=== PATIENT | male | born 1960 | race Caucasian/White ===

== ENCOUNTER 2018-01-05 00:54 | Inpatient (IN) | payer MEDICAID ==
[~2018-01-05] VITALS: Ht 165.1 cm; Wt 59.4 kg
[~2018-01-05 00:54] MED LIST: ACCUNEB SO1.25 MG/1 INH; ADDERALL 10 MG10 MG PO; LEVAQUIN 750 M750 MG PO; NORCO 10-325 T1 EACH PO; NORCO 5-325 TA1 EACH PO; PREDNISONE 10 M10 MG PO; PROTONIX40 M1 PO; VALIUM5 MG PO; XANAX 0.5 MG0.5 MG PO
[2018-01-05 00:59] VITALS: BP 119/74
[2018-01-05] MEDS ORDERED: VENTOLIN HFA 1818 GM INH (01:05)
[2018-01-05] MEDS ORDERED: WELLBUTRIN 75 M75 M1 PO (01:07)
[2018-01-05] MEDS ORDERED: GABAPENTIN 100100 MG PO (01:12)
[2018-01-05 01:25] LABS: ABSOLUTE BASOPHILS 0.2 thou/uL (0.0-0.2); ABSOLUTE EOSINOPHILS 0.3 thou/uL (0.0-0.7); ABSOLUTE LYMPHOCYTES 2.5 thou/uL (0.8-5.3); ABSOLUTE MONOCYTES 0.8 thou/uL (0.0-1.2); ABSOLUTE NEUTROPHILS 8.6 thou/uL (1.6-8.1); BASOPHILS 1.3 %; EOSINOPHILS 2.5 %; HEMATOCRIT 31.4 % (42.0-52.0); HEMOGLOBIN 9.8 gm/dL (14.0-18.0); LYMPHOCYTES 20.6 %; MCH 22.5 pg (26.0-34.0); MCHC 31.1 g/dL (28.0-37.0); MCV 72.3 fL (80.0-100.0); MONOCYTES 6.1 %; MPV 7.2 fl. (7.2-11.1); NUCLEATED RBCS 0 /100WBC; PLATELET COUNT* 359 thou/uL (150-400); POLYS 69.5 %; RBC 4.34 mil/uL (4.50-6.00); RDW-CV 17.8 % (10.5-14.5); WBC 12.4 thou/uL (4.0-11.0)
[2018-01-05 01:33] LABS: CALCIUM 8.7 mg/dL (8.5-10.1); CREATININE 1.1 mg/dL (0.6-1.3); POTASSIUM 3.9 mmol/L (3.5-5.1)
[2018-01-05 01:35] LABS: PROTIME 10.2 Seconds (9.20-11.50)
[2018-01-05 01:38] LABS: ALBUMIN 3.4 g/dL (3.4-5.0); TOTAL BILIRUBIN 0.1 mg/dL (<0.1-1.0); TOTAL PROTEIN 7.7 g/dL (6.4-8.2)
[2018-01-05 02:47] LABS: ANISOCYTOSIS 1+; HYPOCHROMASIA 2+; MICROCYTES 1+; OVALOCYTES Occasional
[2018-01-05 02:48] LABS: PLATELET ESTIMATE ADEQUATE
[2018-01-05 08:02] VITALS: BP 113/67
[2018-01-05 08:08] LABS: ABSOLUTE BASOPHILS 0.1 thou/uL (0.0-0.2); ABSOLUTE EOSINOPHILS 0.2 thou/uL (0.0-0.7); ABSOLUTE LYMPHOCYTES 1.8 thou/uL (0.8-5.3); ABSOLUTE MONOCYTES 1.4 thou/uL (0.0-1.2); ABSOLUTE NEUTROPHILS 14.3 thou/uL (1.6-8.1); BASOPHILS 0.6 %; EOSINOPHILS 0.9 %; HEMATOCRIT 30.9 % (42.0-52.0); HEMOGLOBIN 9.6 gm/dL (14.0-18.0); LYMPHOCYTES 10.1 %; MCH 22.5 pg (26.0-34.0); MCHC 30.9 g/dL (28.0-37.0); MCV 72.7 fL (80.0-100.0); MONOCYTES 7.9 %; MPV 7.6 fl. (7.2-11.1); NUCLEATED RBCS 0 /100WBC; PLATELET COUNT* 350 thou/uL (150-400); POLYS 80.5 %; RBC 4.25 mil/uL (4.50-6.00); RDW-CV 17.6 % (10.5-14.5); WBC 17.7 thou/uL (4.0-11.0)
[2018-01-05 08:19] LABS: CALCIUM 8.8 mg/dL (8.5-10.1); CREATININE 0.8 mg/dL (0.6-1.3); POTASSIUM 4.4 mmol/L (3.5-5.1)
[2018-01-05 08:59] VITALS: BP 136/73
[2018-01-05 12:02] VITALS: BP 142/75
[2018-01-05 15:29] VITALS: BP 151/76
[2018-01-05 20:00] VITALS: BP 149/77
[2018-01-06] VITALS: BP 132/72
[2018-01-06 04:29] VITALS: BP 121/66
[2018-01-06 04:56] LABS: ABSOLUTE BASOPHILS 0.1 thou/uL (0.0-0.2); ABSOLUTE EOSINOPHILS 0.3 thou/uL (0.0-0.7); ABSOLUTE LYMPHOCYTES 2.3 thou/uL (0.8-5.3); ABSOLUTE MONOCYTES 1.2 thou/uL (0.0-1.2); ABSOLUTE NEUTROPHILS 10.5 thou/uL (1.6-8.1); EOSINOPHILS 1.8 %; HEMATOCRIT 32.6 % (42.0-52.0); HEMOGLOBIN 10.1 gm/dL (14.0-18.0); LYMPHOCYTES 16.1 %; MCH 22.8 pg (26.0-34.0); MCHC 31.1 g/dL (28.0-37.0); MCV 73.2 fL (80.0-100.0); MONOCYTES 8.4 %; MPV 8.1 fl. (7.2-11.1); NUCLEATED RBCS 0 /100WBC; PLATELET COUNT* 336 thou/uL (150-400); POLYS 72.7 %; RBC 4.45 mil/uL (4.50-6.00); RDW-CV 17.8 % (10.5-14.5); WBC 14.4 thou/uL (4.0-11.0)
[2018-01-06 05:10] LABS: CALCIUM 8.9 mg/dL (8.5-10.1); CREATININE 0.8 mg/dL (0.6-1.3); POTASSIUM 4.6 mmol/L (3.5-5.1)
[2018-01-06 06:14] LABS: PLATELET ESTIMATE ADEQUATE; POLYCHROMASIA 2+
[2018-01-06 06:15] LABS: ANISOCYTOSIS 2+; MICROCYTES 1+; OVALOCYTES 2+; TARGET CELLS 1+
[2018-01-06 08:00] VITALS: BP 139/78
[2018-01-06] MEDS ORDERED: AMITRIPTYLINE H50 M2 PO (10:40)
[2018-01-06 12:06] VITALS: BP 139/75
[2018-01-06 15:55] VITALS: BP 113/75
[2018-01-06 20:00] VITALS: BP 133/80
[2018-01-07 00:10] VITALS: BP 124/70
[2018-01-07 04:00] VITALS: BP 139/78
[2018-01-07 05:25] LABS: CALCIUM 8.5 mg/dL (8.5-10.1); CREATININE 0.9 mg/dL (0.6-1.3); MAGNESIUM 1.6 mg/dL (1.8-2.4); PHOSPHORUS* 3.4 mg/dL (2.5-4.9); POTASSIUM 4.2 mmol/L (3.5-5.1)
[2018-01-07 08:00] VITALS: BP 138/84
[2018-01-07 11:21] VITALS: BP 163/92
[2018-01-07 15:46] VITALS: BP 138/79
[2018-01-07 19:47] VITALS: BP 147/85
[2018-01-08] VITALS (8 sets, daily range): BP systolic 131–147; BP diastolic 74–84
[2018-01-08 05:35] LABS: HEMATOCRIT 31.1 % (42.0-52.0); HEMOGLOBIN 9.7 gm/dL (14.0-18.0); MCH 22.9 pg (26.0-34.0); MCHC 31.2 g/dL (28.0-37.0); MCV 73.2 fL (80.0-100.0); RBC 4.24 mil/uL (4.50-6.00); RDW-CV 18.1 % (10.5-14.5); WBC 10.7 thou/uL (4.0-11.0)
[2018-01-08 05:47] LABS: APTT 26.7 Seconds (25.0-31.3); PROTIME 10.2 Seconds (9.20-11.50)
[2018-01-08 05:53] LABS: CALCIUM 9.2 mg/dL (8.5-10.1); CREATININE 0.8 mg/dL (0.6-1.3); POTASSIUM 4.7 mmol/L (3.5-5.1)
--- NOTE | 2018-01-08 17:28 | EKG ---
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 : 1960 Requested By: Narendra Cruz Order Number: [id number] Mahsa MD: Bartolo Ayala Measurements Intervals [place] Rate: 76 P: 65 NM: 175 QRS: -41 QRSD: 93 T: 71 QT: 399 QTc: 449 Interpretive Statements Sinus rhythm Left axis deviation Compared to ECG 05/22/2017 11:09:33 Left-axis deviation now present Left anterior fascicular block no longer present T-wave abnormality no longer present Possible ischemia no longer present Prolonged QT interval no longer present Electronically Signed On 01-08-2018 17:28:15 CDT by Bartolo Ayala [email or web address] <ELECTRONICALLY SIGNED> By: Bartolo Ayala MD, FACC 01/08/18 1728 0611 0611 Bartolo Ayala MD, FAC /EPI
[2018-01-09 01:25] VITALS: BP 117/66
[2018-01-09 04:25] VITALS: BP 150/72
[2018-01-09] MEDS ORDERED: COLACE100 MG PO ×2 (07:46→08:41)
--- NOTE | 2018-01-09 08:10 | OP ---
[address] [address] OPERATIVE REPORT Name: ZION BANEGAS Room: [address] IN ..#: [id number] Admission: 01/05/18 Attend Phys: Augusto Downs Discharge: Date of : 58 Report #: [id number] THIS REPORT FOR: //name// CC: JUAN MANUEL physician/PCP Narendra Cruz DICTATED BY: Aditya Randhawa DO DATE OF SERVICE: 01/08/2018 PREOPERATIVE DIAGNOSIS: Comminuted right distal radius extra-articular fracture. POSTOPERATIVE DIAGNOSIS: Comminuted right distal radius extra-articular fracture. PROCEDURE PERFORMED: Open reduction and internal fixation, right distal radius. SURGEON: Get Mcmillan DO SCRIPT MANAGER: Aditya Randhawa DO ANESTHESIA: General and local. ESTIMATED BLOOD LOSS: 5 mL SPECIMENS: None. COMPLICATIONS: None. ANTIBIOTICS: Ancef 2 grams IV preop. ORTHOPEDIC IMPLANTS: Pedrito distal radius plate with combination of cortical and locking screws. INDICATIONS FOR PROCEDURE: The patient is a pleasant 57-year-old male who had a fall approximately 2 to 3 days ago. He was brought to the emergency department after falling down the stairs while intoxicated where he was found to have superior inferior pubic ramus fracture on the right, as well as a right distal radius fracture, which was splinted. He was admitted for pain control and medical management. Once he was optimized and cleared for surgery, it is recommended he would be a candidate for open reduction and internal fixation of his right distal radius. His superior pubic rami can be treated nonoperatively and he can weightbear as tolerated to that. All risks, benefits, complications, indications, and alternatives reviewed. The patient wished to proceed. [place] [id number] OPERATIVE REPORT Name: ZION BANEGASNETH Room: [address] IN M.R.#: [id number] Admission: 01/05/18 Attend Phys: Augusto Downs Discharge: Date of : 58 Report #: [id number] DESCRIPTION OF PROCEDURE: The patient was brought to the operative suite, placed supine on a well-padded table with the right upper extremity on a hand table. A tourniquet was applied to the proximal arm and insufflated to 250 mmHg for total of 45 minutes of the case. Once tourniquet on the proximal arm, The right upper extremity was sterilely prepped and draped in standard fashion. Timeout was taken to ensure correct patient, procedure, operative site. Everybody in the room was in agreement. At that time, 15-blade scalpel was used to make incision through skin and subcutaneous tissue down to the FCR tendon. FCR tendon sheath was incised and retracted ulnarly. The floor of the FCR tendon sheath was carefully incised. Once we were through this fascial layer, the fascial layer was with care taken to protect the radial artery throughout. FPL was retracted and we were down in pronator quadratus. A 15-blade scalpel was used to elevate pronator quadratus from its distal and radial attachments. A gomez elevator was then used to free up any soft tissue involved over the fracture site. Once the fracture site was encountered, a [place]oa elevator and gomez elevator were used to free up the fracture site and mobilize it. Brachioradialis was partially released off the radial styloid to help with reduction. Once we got adequate provisional reduction on fluoroscopy, we then placed a Pedrito 3-hole plate with K wires. We positioned this at the appropriate position on fluoroscopy. We then placed our proximal and distal locking screws into the distal aspect of the plate with the wrist in a flexed position. We then used the plate to further reduce our fracture as we placed cortical screws proximally into the plate. We then drilled over and placed our final locking screw into the radial styloid. Once this portion of the case was finished, final images were taken and saved to the PACS system. The wound was thoroughly irrigated with normal saline. Tourniquet was sent down to 45 minutes. There was no bleeding observed, radial artery was visible and it fixated the patient's pulse. We then closed the subcutaneous tissue with 2-0 Vicryl followed by a running 3-0 Stratafix and Dermabond glue. A 4 x 4, soft roll, , volar resting splint, and Benja bandage were applied. The patient was awakened from anesthesia and brought to PACU in stable condition. <ELECTRONICALLY SIGNED> By: Get Mcmillan DO 01/09/18 0810 0858 0947Get Mcmillan DO /eusebio
[2018-01-09 08:25] VITALS: BP 144/68
[2018-01-09] MEDS ORDERED: OXYCODONE HCL 55 MG PO (08:45)
[2018-01-09 08:48] VITALS: BP 144/68
[2018-01-09] MEDS ORDERED: ASPIRIN325 PO (09:25)
[2018-01-09 15:56] VITALS: BP 121/71
== END 2018-01-09 18:03 | disposition home or self-care (01) | DRG 853 ==
LOC: M.ERS 00:54 → M.TBA-ER 06:34 → M.2W 08:17 → M.ORTHSURG 01-08 21:10
PROVIDERS: Emergency Medicine; Orthopaedic Surgery; ADMIT Internal Medicine
DX: A41.9 Sepsis, unspecified organism (principal); J18.9 Pneumonia, unspecified organism; J96.01 Acute respiratory failure with hypoxia; S52.571A Other intraarticular fracture of lower end of right radius, initial encounter for closed fracture; S32.511A Fracture of superior rim of right pubis, initial encounter for closed fracture; S52.551A Other extraarticular fracture of lower end of right radius, initial encounter for closed fracture; S01.01XA Laceration without foreign body of scalp, initial encounter; B19.20 Unspecified viral hepatitis C without hepatic coma; J43.9 Emphysema, unspecified; F32.9 Major depressive disorder, single episode, unspecified; F41.9 Anxiety disorder, unspecified; K80.20 Calculus of gallbladder without cholecystitis without obstruction; F10.220 Alcohol dependence with intoxication, uncomplicated; G25.81 Restless legs syndrome; F17.210 Nicotine dependence, cigarettes, uncomplicated; W10.8XXA Fall (on) (from) other stairs and steps, initial encounter; Z79.899 Other long term (current) drug therapy; Y93.89 Activity, other specified; Y92.89 Other specified places as the place of occurrence of the external cause; Y99.8 Other external cause status; Z88.8 Allergy status to other drugs, medicaments and biological substances

== ENCOUNTER 2018-01-28 17:08 | Inpatient (IN) | payer MEDICAID ==
[~2018-01-28] VITALS: Ht 170.2 cm; Wt 64.0 kg
[~2018-01-28 17:08] MED LIST changes: +AMITRIPTYLINE H50 M2 PO; +ASPIRIN325 PO; +COLACE100 MG PO; +GABAPENTIN 100100 MG PO; +OXYCODONE HCL 55 MG PO; +VENTOLIN HFA 1818 GM INH; +WELLBUTRIN 75 M75 M1 PO
[2018-01-28 17:09] VITALS: BP 130/70
[2018-01-28 17:41] LABS: HEMATOCRIT 32.7 % (42.0-52.0); HEMOGLOBIN 10.1 gm/dL (14.0-18.0); MCH 21.8 pg (26.0-34.0); MCHC 30.7 g/dL (28.0-37.0); MPV 7.6 fl. (7.2-11.1); NUCLEATED RBCS 0 /100WBC; PLATELET COUNT* 457 thou/uL (150-400); RBC 4.61 mil/uL (4.50-6.00); RDW-CV 19.1 % (10.5-14.5); WBC 39.3 thou/uL (4.0-11.0)
[2018-01-28 17:45] LABS: CALCIUM 8.8 mg/dL (8.5-10.1); CREATININE 1.1 mg/dL (0.6-1.3)
[2018-01-28 17:49] LABS: ALBUMIN 3.3 g/dL (3.4-5.0); TOTAL BILIRUBIN 0.4 mg/dL (<0.1-1.0); TOTAL PROTEIN 7.8 g/dL (6.4-8.2)
[2018-01-28 18:19] LABS: APTT 28.9 Seconds (25.0-31.3); INR 1.2; PROTIME 11.7 Seconds (9.20-11.50)
[2018-01-28 18:30] LABS: ABSOLUTE LYMPHOCYTES 3.1 thou/uL (0.8-5.3); ABSOLUTE NEUTROPHILS 34.2 thou/uL (1.6-8.1)
[2018-01-28 18:33] LABS: ANISOCYTOSIS 2+; OVALOCYTES Occasional; PLATELET ESTIMATE INCREASED
[2018-01-28 18:34] LABS: HYPOCHROMASIA 1+; MICROCYTES 1+
[2018-01-28 19:55] VITALS: BP 104/57
[2018-01-28 22:45] VITALS: BP 107/60
[2018-01-29 02:18] LABS: HEMATOCRIT 28.4 % (42.0-52.0); HEMOGLOBIN 8.8 gm/dL (14.0-18.0); MCH 22.4 pg (26.0-34.0); MCV 72.1 fL (80.0-100.0); RBC 3.94 mil/uL (4.50-6.00); RDW-CV 18.8 % (10.5-14.5); WBC 34.9 thou/uL (4.0-11.0)
[2018-01-29 02:34] LABS: CALCIUM 8.2 mg/dL (8.5-10.1); CREATININE 1.1 mg/dL (0.6-1.3); POTASSIUM 4.6 mmol/L (3.5-5.1)
[2018-01-29 04:00] VITALS: BP 131/65
--- NOTE | 2018-01-29 04:33 | NUR ---
ASSUMED CARE AT 2245, ADMISSION CHARTED. PATIENT FROM PACU, REPORT RECEIVED FROM DUTCH OSBORN. PATIENT ALERT/ORIENTED X4, RESTING IN BED. PLACED ON TELE, ST. WEARING OXYGEN 4L/NC, NO SOB NOTED, SATS 97% PER CONTINUOUS PULSE OX. SL INTACT TO RIGHT AND LEFT FOREARM, FLUSHES WELL, IVF STARTED PER MAR. REMAINS ON BEDREST. URINAL AT SIDE. PATIENT TURNED AND REPOSITIONED IN BED WITH PILLOWS Q2H. SCD'S INTACT. TOLERATING ICE CHIPS WELL WITH NO NAUSEA/VOMITING NOTED. STATES HAVING ABDOMINAL PAIN, RATES 5/10, MEDS PER MAR WITH RELIEF NOTED. THREE SMALL LAP INCISIONS NOTED TO ABDOMEN WITH DERMABOND INTACT. SEPSIS SCREENED POSITIVE. DR. TUCKER NOTIFIED, ORDERS RECEIVED AND NOTED. ORIENTED TO CALL LIGHT, STAFF, AND BED CONTROLS. BED ALARM ON. CALL LIGHT WITHIN REACH, ENCOURAGED TO CALL FOR NEEDS.
[2018-01-29 06:18] LABS: HEMATOCRIT 28.7 % (42.0-52.0); HEMOGLOBIN 8.7 gm/dL (14.0-18.0); MCH 21.9 pg (26.0-34.0); MCHC 30.5 g/dL (28.0-37.0); MCV 71.8 fL (80.0-100.0); MPV 7.2 fl. (7.2-11.1); RDW-CV 19.2 % (10.5-14.5); WBC 33.3 thou/uL (4.0-11.0)
[2018-01-29 06:20] LABS: URINE BILIRUBIN NEGATIVE (Negative); URINE BLOOD TRACE (Negative); URINE CLARITY CLEAR; URINE COLOR YELLOW; URINE GLUCOSE-RANDOM NEGATIVE (Negative); URINE KETONES NEGATIVE (Negative); URINE LEUKOCYTES-REFLEX NEGATIVE (Negative); URINE NITRITE-REFLEX NEGATIVE (Negative); URINE PROTEIN TRACE (Negative); URINE SPECIFIC GRAVITY 1.025 (1.005-1.030); URINE UROBILINOGEN 0.2 E.U./dl (0.2-1.0)
[2018-01-29 06:29] LABS: POTASSIUM 4.2 mmol/L (3.5-5.1)
--- NOTE | 2018-01-29 07:42 | NUR ---
PATIENT RESTING IN BED. VOIDED PER URINAL, UA SENT TO LAB. REPORT GIVEN TO ONCOMING NURSE. WILL MONITOR.
[2018-01-29 08:00] VITALS: BP 104/62
[2018-01-29 11:33] VITALS: BP 117/71
--- NOTE | 2018-01-29 11:55 | NUR ---
ASSUMED CARE OF PATIENT THIS AM AT 0730. PATIENT IS ALERT AND ORIENTED X 4. HE C/O POST SURGICAL PAIN. PATIENT KEPT NPO AT THIS TIME PER ORDER. TELE SHOWS ST. PATIENT HAS BEEN ON BED REST. IV FLUIDS INFUSING. PATIENT MEDICATED FOR PAIN Q 2 HR. WILL CONTINUE TO MONITOR PATIENT COMFORT.
--- NOTE | 2018-01-29 13:41 | NUR ---
Pt known to this CM from previous hospital stay. Pt is A&O. Resides at home with his dtr. Normally independent, works outside of the home at a [employer]. Pt dc last time with a platform walker, Pt states that he no longer uses it. PT/OT ordered, to assist with exercise plan for home at dc. No hx of HH or SNF. Pt's goal is to dc home. Following
--- NOTE | 2018-01-29 14:51 | EKG ---
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 : 1960 Requested By: Mary Mejia Order Number: [id number] MD: Bartolo Ayala Measurements Intervals [place] Rate: 121 P: 71 [place]: 166 QRS: -51 QRSD: 88 T: 75 QT: 317 QTc: 450 Interpretive Statements Sinus tachycardia Probable left atrial enlargement LAD, consider left anterior fascicular block Incomplete right bundle-branch block Compared to ECG 01/08/2018 06:11:31 ST (T wave) deviation now present Sinus rhythm no longer present Incomplete right bundle-branch block present Electronically Signed On 01-29-2018 14:50:58 CDT by Bartolo Ayala [email or web address] <ELECTRONICALLY SIGNED> By: Bartolo Ayala MD, FACC 01/29/18 1450 1716 1716 Bartolo Ayala MD, FAC /EPI
--- NOTE | 2018-01-29 14:52 | EKG ---
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 : 1960 Requested By: Ralf Burdick Order Number: [id number] Reading MD: Bartolo Ayala Measurements Intervals [place] Rate: 117 P: 65 [place]: 169 QRS: -26 QRSD: 100 T: 60 QT: 313 QTc: 437 Interpretive Statements Sinus tachycardia Borderline left axis deviation Minimal ST elevation, inferior leads Compared to ECG 01/08/2018 06:11:31 ST (T wave) deviation now present Sinus rhythm no longer present Electronically Signed On 01-29-2018 14:51:54 CDT by Bartolo Ayala [email or web address] <ELECTRONICALLY SIGNED> By: Bartolo Ayala MD, FACC 01/29/18 1451 2347 2347 Bartolo Ayala MD, [facility] /EPI
[2018-01-29 15:34] VITALS: BP 116/65
[2018-01-29 17:01] VITALS: BP 100/60
[2018-01-29 20:00] VITALS: BP 119/65
[2018-01-30] VITALS: BP 123/64
[2018-01-30 04:00] VITALS: BP 117/66
[2018-01-30 04:32] LABS: ABSOLUTE EOSINOPHILS 0.1 thou/uL (0.0-0.7); ABSOLUTE LYMPHOCYTES 1.8 thou/uL (0.8-5.3); ABSOLUTE NEUTROPHILS 16.6 thou/uL (1.6-8.1); BASOPHILS 0.2 %; EOSINOPHILS 0.4 %; HEMOGLOBIN 8.6 gm/dL (14.0-18.0); LYMPHOCYTES 9.4 %; MCH 22.4 pg (26.0-34.0); MCHC 30.8 g/dL (28.0-37.0); MCV 72.7 fL (80.0-100.0); MONOCYTES 5.2 %; MPV 7.8 fl. (7.2-11.1); NUCLEATED RBCS 0 /100WBC; PLATELET COUNT* 281 thou/uL (150-400); POLYS 84.8 %; RBC 3.86 mil/uL (4.50-6.00); RDW-CV 19.3 % (10.5-14.5); WBC 19.6 thou/uL (4.0-11.0)
[2018-01-30 04:47] LABS: ALBUMIN 2.3 g/dL (3.4-5.0); CALCIUM 8.4 mg/dL (8.5-10.1); CREATININE 0.9 mg/dL (0.6-1.3); POTASSIUM 3.9 mmol/L (3.5-5.1); TOTAL BILIRUBIN 0.3 mg/dL (<0.1-1.0); TOTAL PROTEIN 6.2 g/dL (6.4-8.2)
--- NOTE | 2018-01-30 05:14 | NUR ---
PATIENT NOT PROGRESSING TOWARDS GOALS: PATIENT CONTINUES TO RECEIVE FREQUENT DOSES OF FENTANYL FOR PAIN IN ABDOMEN RATE 8-9/10. BEAM DEPARTMENT SUPERVISOR READS ST THROUGHOUT SHIFT, HR FROM 100-120'S. PATIENT BECAME DISORIENTED AND ATTEMPTING TO CLIMB OUT OF BED AT AROUND 0300. BED ALARM SOUNDED AND PATIENT O2 SATS WERE FOUND TO BE 79-80%. PATIENT REORIENTED, ASSISTED BACK IN BED, AND PLACED ON 5L O2 NC TO MAINTAIN SATS >92%. O2 HAS SINCE BEEN WEANED TO 2L O2 NC WITH SATURATION 95%. PATIENT RESTING COMFORTABLY AT THIS TIME. CALL LIGHT WITHIN REACH. HOURLY ROUNDING OBSERVED.
[2018-01-30 08:00] VITALS: BP 128/77
--- NOTE | 2018-01-30 09:40 | OP ---
[address] [address] OPERATIVE REPORT Name: BANEGAS,ZION CASTRO Room: [address] IN .R.#: [id number] Admission: 01/28/18 Attend Phys: Ralf Burdick MD Discharge: Date of : 58 Report #: [id number] THIS REPORT FOR: //name// CC: [facility] physician/PCP Ralf Burdick DATE OF SERVICE: 01/28/2018 PREOPERATIVE DIAGNOSIS: Acute appendicitis. POSTOPERATIVE DIAGNOSIS: Perforated acute appendicitis. OPERATIVE PROCEDURE: Laparoscopic appendectomy. ANESTHESIA: General endotracheal with 0.5% Marcaine infiltrated in the wound site. OPERATIVE FINDINGS: Perforated gangrenous appendix with spillage and purulent drainage throughout the lower abdomen and upper abdomen. OPERATIVE PROCEDURE: The patient was placed under general endotracheal anesthesia and the abdomen was shaved, prepped and draped in a sterile fashion. Time-out was taken. Antibiotics administered. We began by infiltrating the infraumbilical crease with 0.5% Marcaine. A transverse incision was created with #15 blade and two Adson and cautery were used to dissect down to the anterior fascia. The fascia was lifted up and cleared with cautery and transected transversely with a #15 scalpel blade and then a hemostat was carefully used to bluntly dissect into the peritoneal cavity, without injury to underlying abdominal viscera. An 0 Vicryl was looped through this incision site and a size 12 Adriana trocar was placed into the peritoneal cavity and secured at the skin. Insufflation with carbon dioxide to 5 liters was completed and a 5-mm 30-degree scope was inserted. Inspection of the abdomen showed demonstration of peritonitis and yellowish purulent material. I then, under direct visualization, infiltrated the suprapubic area and the right lateral abdomen and placed two 5-mm trocars in those locations after a 5-mm incision placed at those locations. The patient was then placed in Trendelenburg and left lateral decubitus position. Manipulating the bowel with two Endo Babcocks, I was able to find the appendix. It was gangrenous. It was lifted up and I then used the LigaSure to dissect the mesoappendix until I could see the appendiceal-cecal junction. An Endo-DAMIÁN was brought into the field, placed across the base of the appendiceal-cecal junction and fired successfully amputating the appendix. The appendix then was lifted up and the stapler was removed and an Endopouch was fed into the abdominal cavity, opened and the appendix placed in that pouch and the pouch closed. I then retrieved the pouch with the appendix in it through the umbilical incision site re-establishing pneumoperitoneum. I irrigated the abdomen with approximately 1700 mL of saline solution [place] [address] OPERATIVE REPORT Name: ZION BANEGAS Room: [address] IN M.R.#: [id number] Admission: 01/28/18 Attend Phys: Ralf Burdick MD Discharge: Date of : 58 Report #: [id number] effluent until it was practically clear from the pelvis and both left and right upper abdomen, around the liver and around the diaphragm. Once that fluid was aspirated, pneumoperitoneum was released. Trocars were removed. The patient was placed back in the neutral position. The 0 Vicryl was tied at the umbilical stalk and infiltrated with 0.5% Marcaine and then all three incisions were closed with 4-0 PDS sutures and sealed with Dermabond. Estimated blood loss 2 mL. Sponge and instrument counts correct. The patient was extubated and returned to recovery in satisfactory condition. <ELECTRONICALLY SIGNED> By: Nely Arambula MD 01/30/18 0940 2139 2219Nely Arambula MD /nt
--- NOTE | 2018-01-30 11:47 | CON ---
[address] [address] CONSULTATION Name: BANEGAS,ZION CASTRO Room: [address] IN M.R.#: [id number] Admission: 01/28/18 Attend Phys: Ralf Burdick MD Discharge: Date of : 58 Report #: [id number] THIS REPORT FOR: //name// CC: [facility] physician/PCP Ralf Burdick DATE OF SERVICE: 01/29/2018 ATTENDING PHYSICIAN:Beto Scott M.D. REASON FOR EVALUATION: Acute perforated appendicitis. HISTORY OF PRESENT ILLNESS: Chart reviewed, patient examined. This is a 57-year-old gentleman with a known COPD with emphysematous component, also ethanolism who was admitted with a fairly abrupt onset of right lower quadrant pain. It is notable he had gallstones, was concerned about cholecystitis, was evaluated including imaging in the Emergency Room, was found to have confirmation of inflammatory process involving the appendix with periappendiceal inflammation to suggest perforation and underwent laparoscopic appendectomy and this was confirmed. He has been on broad spectrum therapy with piperacillin and tazobactam. He does have moderate degree of pain at this point. Denies significant dyspnea. He is somewhat lethargic, although not encephalopathic. ALLERGIES: STELAZINE. CURRENT MEDICATIONS: Include Zosyn, oxycodone, enoxaparin, ipratropium and albuterol inhaler, metronidazole, fentanyl, p.r.n. analgesics and antiemetics. PAST MEDICAL HISTORY: As noted above, COPD, restless legs syndrome, history of hepatitis C. SOCIAL HISTORY: Former excess ethanol, smokes 3 cigarettes a day. FAMILY HISTORY: Noncontributory. REVIEW OF SYSTEMS: As above. PHYSICAL EXAMINATION: GENERAL: He is in moderate distress at this point secondary to pain. He is taking shallow breaths. He is lying supine. He is somewhat lethargic, appears mildly undernourished and chronically ill appearing. VITAL SIGNS: Temperature 98.1, pulse 106, respirations 16, blood pressure 117/71. SKIN: Warm, dry, no rashes. HEENT: He has got nasal cannula oxygen in place. NECK: [place] [address] CONSULTATION Name: ZION BANEGAS Room: [address] IN [facility]#: [id number] Admission: 01/28/18 Attend Phys: Ralf Burdick MD Discharge: Date of : 58 Report #: [id number] LUNGS: Diminished breath sounds, a few scattered crackles. HEART: Regular. I do not appreciate any murmur. ABDOMEN: It is mildly firm. There is some tenderness particularly the stab site in particular right lower quadrant. GENITOURINARY AND RECTAL: Deferred. LABORATORY DATA: Electrolytes: Sodium 129, potassium 4.2, chloride 98, bicarbonate is 25, BUN and creatinine 17 and 1.0. Estimated GFR of 77, anion gap of 6. CBC: White count of 33.3, is down from 34.9. H and H 8.7 and 28.7, platelets of 347. Urinalysis: Unremarkable. Electrolytes: Lactic acid 1.8. Reviewed operative report chest x-ray, no acute process. CT of the pelvis preop showed dilated appendix with severe surrounding inflammation, focus of free intraperitoneal air within the hepatorenal fossa, probably distended gallbladder without surrounding inflammation and a previous history of right superior and inferior pubic rami fractures, mild sigmoid diverticulosis without evidence of diverticulitis, severe bronchiectasis in the lower lungs. Liver functions otherwise unremarkable with the exception of mildly elevated alkaline phosphatase 133, total protein 7.8, albumin 3.3. ASSESSMENT AND PLAN: Acute perforated appendix with peritonitis. We will continue empiric therapy presuming polymicrobial etiology. We will follow up on blood cultures results as well. Was encouraged to utilize the incentive spirometer and certainly suspect he has some degree of immune suppression given his history and would be at risk for nosocomial-related infectious complications as well. We will monitor expectantly. Increase activity as allowed and advance diet as tolerated. <ELECTRONICALLY SIGNED> By: Dilip Benz MD 01/30/18 1147 1213 1441Jobrenda Benz MD /nt
[2018-01-30 12:00] VITALS: BP 110/69
[2018-01-30 12:22] LABS: BE -2.2 mmol/L (-2 to +3); HCO3 22.4 mmol/L (22.0-26.0); PCO2 37.4 mmHg (35.0-45.0); pH 7.395 (7.340-7.450)
[2018-01-30 15:38] VITALS: BP 126/68
--- NOTE | 2018-01-30 17:08 | NUR ---
I ASSUMED CARE OF THE PATIENT AT 0700. HE IS ALERT AND ORIENTED X4 AND IS UP WITH ASSIST OF 1 WITH A GAIT BELT. HE HAS BEEN OUT OF THE BED TO THE CHAIR A FEW TIMES TODAY AND AMBULATES TO THE BATHROOM. HOURLY ROUNDING WAS COMPLETED AND PATIENT NEEDS ARE MET. BED IS IN THE LOW LOCKED POSITION AND ALARM IS ON WITH CALL LIGHT IN REACH. PAIN IS MANAGED WITH PRN MEDS. HE IS GOOD ABOUT USING THE IS/BREATHING TREATMENTS. NEW ORDERS WERE OBTAINED FOR CONTINUOUS PULSE OX. CHEST XRAY RESULTS WERE WNL. WILL CONTINUE TO MONITOR.
--- NOTE | 2018-01-30 17:24 | NUR ---
PHYSICIAN SAYS PATIENT MAY BE ADVANCED TO CLEAR LIQUID DIET WHEN PASSING GAS. HE MAY BE A SOLID/REGULAR DIET WHEN HE HAS A BM.
[2018-01-30 20:00] VITALS: BP 132/79
[2018-01-31] VITALS: BP 139/78
--- NOTE | 2018-01-31 03:22 | NUR ---
ASSUMED PT CARE. REPORT RECEIVED FROM NURSE . PT IS ALERT AWAKE ORINETED X4. SINUS TACHYCARDIA ON THE MONITOR. VITAL SIGNS ARE WITHIN NORMAL LIMIT. 1/2 NS INFUSING IN L IV LINE AT 80CC PER HOUR. IV ANTIBIOTICS GIVEN SCHEDULED. ASSESSEMENT PERFORMED. COMPLAIN OF PAIN LEVEL 6 IN HIS ABDOMEN. FENTANYL GIVEN ONCE. LAP SITE IN DRY CLEAN AND INTACT. NO DRESSING. ON FALL PRECAUTION . CALL LIGHT AT REACH. WILL CONTINUE TO MONITOR.
[2018-01-31 04:00] VITALS: BP 125/70
[2018-01-31 04:30] LABS: ABSOLUTE EOSINOPHILS 0.1 thou/uL (0.0-0.7); ABSOLUTE LYMPHOCYTES 0.9 thou/uL (0.8-5.3); ABSOLUTE MONOCYTES 0.7 thou/uL (0.0-1.2); ABSOLUTE NEUTROPHILS 13.2 thou/uL (1.6-8.1); BASOPHILS 0.2 %; EOSINOPHILS 0.5 %; HEMATOCRIT 27.4 % (42.0-52.0); HEMOGLOBIN 8.7 gm/dL (14.0-18.0); LYMPHOCYTES 5.8 %; MCH 22.5 pg (26.0-34.0); MCHC 31.7 g/dL (28.0-37.0); MCV 70.9 fL (80.0-100.0); MONOCYTES 4.7 %; MPV 7.8 fl. (7.2-11.1); NUCLEATED RBCS 0 /100WBC; PLATELET COUNT* 272 thou/uL (150-400); POLYS 88.8 %; RBC 3.87 mil/uL (4.50-6.00); RDW-CV 18.8 % (10.5-14.5); WBC 14.9 thou/uL (4.0-11.0)
[2018-01-31 04:43] LABS: ALBUMIN 2.3 g/dL (3.4-5.0); CALCIUM 8.3 mg/dL (8.5-10.1); CREATININE 0.7 mg/dL (0.6-1.3); POTASSIUM 3.6 mmol/L (3.5-5.1); TOTAL BILIRUBIN 0.4 mg/dL (<0.1-1.0); TOTAL PROTEIN 6.3 g/dL (6.4-8.2)
[2018-01-31 04:45] LABS: PREALBUMIN 8.2 mg/dL (18.0-35.7)
--- NOTE | 2018-01-31 06:49 | NUR ---
IV ANTIBIOTICS, PAINMED WERE GIVEN DURING NIGHT. PT LAP SITES ARE INTACT DRY AND CLEAN . NO DRAINAGE. HE HAD HIS FIRST BOWEL MOVEMNET SINCE SX THIS AM AT 0630.
--- NOTE | 2018-01-31 07:15 | NUR ---
CHANGE OF SHIFT BEDSIDE REPORT GIVEN PATIENT SEEN AT BEDSIDE IN BED RESTING ASSUMED PATIENT CARE
[2018-01-31 08:00] VITALS: BP 130/79
[2018-01-31 12:00] VITALS: BP 130/84
[2018-01-31 16:00] VITALS: BP 128/84
--- NOTE | 2018-01-31 18:09 | NUR ---
PATIENT REMAINS A AND O X 4 ST 100S-110S LUNGS CTA/DIM IN BASES ON RA SATS MID 90S APPETITE FAIR ADVANCED TO REGULAR DIET ABD FIRM, BS LAST BM THIS AM GOOD UO, PER URINAL UP WITH ASSIST SAT UP IN CHAIR SEVERAL TIMES AND WALKED IN HALLWAY, TOLERATED WELL IV L WR 20 GA ABD 3 LAP SITES C/D/I IVF D51/2NS+20KCL AT 80CC/HR 2ND IV R FA 22 GA SL C/O ABD PAIN TREATED WITH NORCO PO PRN WITH RELIEF CALL LIGHT IN REACH AND INSTRUCTION GIVEN AND FOLLOWED ABN LABS MONITORED NA 126, HGB 8.7, WBC 14.9, CRP 227
[2018-01-31 20:00] VITALS: BP 140/81
[2018-02-01] VITALS: BP 132/81
--- NOTE | 2018-02-01 00:14 | NUR ---
ASSUMED PT CARE REPORT RECEIVED FORM NURSE. PT IS ALERT AWAKE ORIENTED X4. SINUS RYTHM ON THE GALLERY OR MUSEUM TECHNICIAN. IV ANTIBIOTICS INFUSING. O2 SATURATION IS 97% ON RA. PT COMPLAINS OF PAIN IN ABD. PAIN PILL GIVEN. ON FALL PRECAUTION FOR PREVIOUS FALL.USES URINAL. IV FLUID INFUSING. IV LINES ARE PATENT. WILL CONTINUE TO MONITOR
[2018-02-01 04:00] VITALS: BP 126/74
[2018-02-01 04:25] LABS: HEMOGLOBIN 9.2 gm/dL (14.0-18.0); MCH 22.4 pg (26.0-34.0); MCHC 31.7 g/dL (28.0-37.0); MCV 70.7 fL (80.0-100.0); MPV 7.6 fl. (7.2-11.1); RBC 4.11 mil/uL (4.50-6.00); RDW-CV 19.2 % (10.5-14.5); WBC 11.4 thou/uL (4.0-11.0)
[2018-02-01 04:31] LABS: CALCIUM 8.5 mg/dL (8.5-10.1); CREATININE 0.7 mg/dL (0.6-1.3); POTASSIUM 3.7 mmol/L (3.5-5.1)
[2018-02-01 08:00] VITALS: BP 133/77
[2018-02-01 11:47] VITALS: BP 153/87
[2018-02-01 15:18] VITALS: BP 152/91
--- NOTE | 2018-02-01 18:06 | NUR ---
PT RECEIVED PAIN MEDS X2 TODAY 1X EMESIS OF FOOD AND COFFEE THIS AM BM THIS AM THAT WAS LOOSE BUT NOT SINCE PT DID GET HEARTBURN THIS EVENING SURGEON AWARE AND 'IT'S PART OF THE HEALING PROCESS' FAMILY IS AWARE WELL PT IS UP SBA STEADY CALL LIGHT IN REACH
[2018-02-01 19:50] VITALS: BP 117/69
[2018-02-02] VITALS: BP 121/65
[2018-02-02 04:00] VITALS: BP 138/84
[2018-02-02 04:41] LABS: HEMATOCRIT 28.3 % (42.0-52.0); HEMOGLOBIN 9.1 gm/dL (14.0-18.0); MCH 22.9 pg (26.0-34.0); MCHC 32.3 g/dL (28.0-37.0); MCV 70.8 fL (80.0-100.0); MPV 7.4 fl. (7.2-11.1); WBC 10.9 thou/uL (4.0-11.0)
--- NOTE | 2018-02-02 04:53 | NUR ---
END SHIFT: PT RESTED WELL. C/O PAIN IN ABD X1 RELIEVED WITH PAIN MEDICATION. SR/ST ON MONITOR. TOLERATING IV ANTIBIOTICS WELL. NO C/O NAUSEA OVER SHIFT. 3 LAP SITES ON ABD CLOSED WITH DERMABOND AND INTACT. NO REDNESS OR OOZING NOTED. PLANS FOR DC THIS WEEKEND. SAFETY PRECAUTIONS IN PLACE. VSS. CALL LIGHT IN REACH. WILL CONT TO MONITOR.
[2018-02-02 05:27] LABS: CALCIUM 8.1 mg/dL (8.5-10.1); CREATININE 0.7 mg/dL (0.6-1.3); MAGNESIUM 1.1 mg/dL (1.8-2.4); POTASSIUM 3.8 mmol/L (3.5-5.1)
[2018-02-02 08:00] VITALS: BP 117/74
[2018-02-02 11:34] VITALS: BP 130/86
[2018-02-02 15:42] VITALS: BP 122/77
--- NOTE | 2018-02-02 16:33 | NUR ---
SHIFT NOTE - PT UP WITH THERAPY THIS AM AND WALKED HALLS. PT TOLERATING PO PAIN MEDICATION. DENIES ANY NAUSEA FOR THIS SHIFT. TOLERATING REGULAR DIET.
[2018-02-02 20:00] VITALS: BP 135/68
[2018-02-03] VITALS: BP 142/77
[2018-02-03 04:00] VITALS: BP 142/80
[2018-02-03 05:09] LABS: HEMATOCRIT 30.3 % (42.0-52.0); HEMOGLOBIN 9.6 gm/dL (14.0-18.0); MCH 22.3 pg (26.0-34.0); MCHC 31.8 g/dL (28.0-37.0); MCV 70.4 fL (80.0-100.0); MPV 8.1 fl. (7.2-11.1); RBC 4.3 mil/uL (4.50-6.00); RDW-CV 19.6 % (10.5-14.5); WBC 13.9 thou/uL (4.0-11.0)
[2018-02-03 05:14] LABS: CALCIUM 8.4 mg/dL (8.5-10.1); CREATININE 0.7 mg/dL (0.6-1.3); POTASSIUM 3.8 mmol/L (3.5-5.1)
[2018-02-03 08:00] VITALS: BP 120/78
[2018-02-03 11:44] VITALS: BP 133/84
--- NOTE | 2018-02-03 12:20 | NUR ---
PT RETURNED FROM WALKING WITH PT UP/DOWN STAIRS AND BEGAN VOMITING. ONE HOUR PRIOR HE REC AUGMENTIN AND FLAGYL PO WITH CHOCOLATE ICE CREAM (PT REQUEST - DID NOT WANT ANY OTHER FOOD). PT VOMITED ABOUT 150ml BROWN EMESIS. PT GIVEN 4MG IV ZOFRAN. PT STATED HE IS FEELING BETTER AFTER HE VOMITED.
[2018-02-03] MEDS ORDERED: TRAMADOL 50 MG50 MG PO (13:13)
[2018-02-03] MEDS ORDERED: HYDROCODON-ACE1 EAC7 PO (13:13)
[2018-02-03] MEDS ORDERED: AUGMENTIN 875-1 EACH PO (13:13)
[2018-02-03 13:26] VITALS: BP 133/84
--- NOTE | 2018-02-03 14:15 | NUR ---
DISCHARGE NOTE - REVIEWED DISCHARGE INSTRUCTIONS WITH PT. NO QUESTIONS. THREE RX'S GIVEN. ALL BELONGINGS SENT WITH PT/DTR. IV REMOVED. PT FEELING BETTER AFTER VOMITING EARLIER.
--- NOTE | 2018-02-25 07:05 | PATH ---
[address] [address] PATHOLOGY RPT PROCEDURE Name: ZION HAGAN Room: [address] IN M.R.#: [id number] Admission: 01/28/18 Date of : 58 Discharge: 02/03/18 Report #: [id number] Path Case #: [id number] [facility] Accession Number: [id number] . 01 Material submitted: . APPENDIX . 01 Clinical history: . Acute appendicitis . 02 Diagnosis: Appendix, appendectomy: - Acute appendicitis and periappendicitis with focal perforation. (SKM:filomena; 01/31/2018) QMS/01/31/2018 . 02 Electronically signed: . Job Jaramillo MD, Pathologist NPI- [id number] . 01 Gross description: . Received in formalin, labeled "Zion Hagan and appendix ", is a disrupted appendix (6.5 cm length x 1.1 cm diameter) and attached mesoappendix (5.2 x 1.6 x 0.7 cm). The proximal resection margin is closed under is closed by a staple line. The staple line is removed and the adjacent serosa is inked black. The serosa is diffusely covered with mcdaniels-white exudate and has a disruption/perforation 1.2 x 0.6 cm (inked orange) located 3.2 cm from proximal resection margin. The lumen is dilated and filled with young-brown, soft fecal material and no discrete fecalith is identified. The wall has an average thickness of 0.1 cm. The erica-appendiceal soft tissue has a yellow cut surface. Screen Printing Machine Loader Unloader sections are submitted as follows: A1. Proximal resection margin and proximal to mid appendix A2. Disruption/perforation A3. Tip (SWS; 01/29/2018) SHS/SHS . 02 Pathologist provided ICD-10: K35.80 . 02 CPT . 473332 Specimen Comment: A courtesy copy of this report has been sent to Specimen Comment: [phone], . Specimen Comment: [id number] Performed at: 01 [place] [address] PATHOLOGY RPT PROCEDURE Name: ZION HAGAN Room: [address] IN .R.#: [id number] Admission: 01/28/18 Date of : 58 Discharge: 02/03/18 Report #: [id number] Path Case #: [id number] [address] [facility] [address], [place] [id number] MD Fitz Sanchez MD Phone: [phone] Performed at: 02 [facility] [address], [place], [place] [id number] MD Pawan Laird MD Phone: [phone]
== END 2018-02-03 14:15 | disposition home or self-care (01) | DRG 338 ==
LOC: M.ERS 17:08 → M.2W 19:13 → M.TBA-ER 19:13 → M.2W 22:04
PROVIDERS: Internal Medicine; Nurse Practitioner Family; Surgery; ADMIT Internal Medicine
PROC: 0DTJ4ZZ Resection of Appendix, Percutaneous Endoscopic Approach (ICD-10-PCS; principal; 2018-01-28)
DX: K35.3 Acute appendicitis with localized peritonitis (principal); J96.91 Respiratory failure, unspecified with hypoxia; R65.10 Systemic inflammatory response syndrome (SIRS) of non-infectious origin without acute organ dysfunction; J98.11 Atelectasis; F17.210 Nicotine dependence, cigarettes, uncomplicated; F10.20 Alcohol dependence, uncomplicated; K35.2 Acute appendicitis with generalized peritonitis; G25.81 Restless legs syndrome; Z87.81 Personal history of (healed) traumatic fracture; Z79.51 Long term (current) use of inhaled steroids; Z88.8 Allergy status to other drugs, medicaments and biological substances; Z79.82 Long term (current) use of aspirin; Z79.899 Other long term (current) drug therapy

== ENCOUNTER 2019-04-06 10:18 | Emergency (ER) | payer MEDICAID ==
[~2019-04-06] VITALS: Ht 175.3 cm; Wt 59.0 kg
[~2019-04-06 10:18] MED LIST changes: +AUGMENTIN 875-1 EACH PO; +HYDROCODON-ACE1 EAC7 PO; +TRAMADOL 50 MG50 MG PO
[2019-04-06] MEDS ORDERED: LISINOPRIL-HCT1 EAC1 PO (10:36)
[2019-04-06] MEDS ORDERED: LISINOPRIL2.5 MG PO (10:36)
[2019-04-06] MEDS ORDERED: KEFLEX500 M2 PO (10:41)
[2019-04-06 10:47] VITALS: BP 146/89
== END 2019-04-06 10:49 | disposition home or self-care (01) ==
LOC: M.ERS 10:18
DX: K02.9 Dental caries, unspecified (principal); K04.7 Periapical abscess without sinus; G25.81 Restless legs syndrome; Z86.19 Personal history of other infectious and parasitic diseases; Z88.8 Allergy status to other drugs, medicaments and biological substances